=== PATIENT | female | born 1985 | race Caucasian/White ===

== ENCOUNTER 2024-01-05 15:15 | Outpatient (RCR) | payer OTHER, MEDICAID, SELFPAY ==
--- NOTE | 2023-12-02 13:08 | PT.OIE ---
Current Diagnoses Segmental and somatic dysfunction of pelvic region (12/01/23) Pelvic and perineal pain (12/01/23) Frequency of micturition (12/01/23) Nocturia (12/01/23) Visit Care Team Role Provider Type Aayush Trivedi MD Attending Provider Non-Staff Family Provider Primary Care Provider Referring Provider Specialty: Family Practice Address: [address] [place] [address], [id number] Email: Physical Therapy Initial Evaluation PT-OP-A Visit Information Start: 12/01/23 12:00 Freq: Status: Active Protocol: Document 12/01/23 13:01 [facility] (Rec: 12/01/23 13: [facility] [id number]) Out-Patient Physical Therapy Visit Information Visit Information Visit Type Initial Evaluation Visit Start Time 13:00 Visit Stop Time 13:45 Visit Number 1 Evaluation Information Evaluation Date 12/01/23 PT-OP-B Current Condition Start: 12/01/23 12:00 Freq: Status: Active Protocol: Document 12/01/23 13:00 [facility] (Rec: 12/01/23 13: [facility] [id number]) Current Condition History of Current Condition Onset Date September 2022 Current Complaints pelvic pain, urinary urgency/ frequency History of Current Condition in September of 2022 she was found to have a embedded IUD so she had surgery to remove it. She had the IUD in for 6 years. Afterwards she was experiencing a lot of pain and then started showing signs of infection. She had a infection and was in a lot of pain, she went to the ER and was told she didn't have a infection. THe pain didn't stop and she was able to see a doctor and was prescribed antibiotics and they did make the severe symptoms go away. SHe feels she is having urination issues. She describes frequent voiding and she goes every 30 min. She is limited both with her urgency and with pain HEr pain is mainly on the left side of her pelvis and abdominal wall. She had pre cervical cancer at 25 and was treated at located within [facility]. She had a leap procedure and she hasn't had any reoccurance of cancer since that time. pt notes her doctor recommended drinking more water. SHe is trying to drink 5-6 cups per water per day. She has a history of UTI's and has had a kidney infection . Pt notes she is back to regular bowel movements. SHe wakes up 4 times to go to the bathroom throuout the night. PT-OP-C Subjective Start: 12/01/23 12:00 Freq: Status: Active Protocol: Document 12/01/23 13:00 [facility] (Rec: 12/02/23 12:43 [facility] [id number]) Patient Questionnaires Pelvic Pain and Urgency/Frequency Patient Symptom Scale Pelvic Pain Score 25 OP-PT Pain Assessment Location left side lower abdomen and pelvis Pain Location Details pain is felt both internally in the pelvic floor as well as abdomen Intensity 6 Scale Used Numeric (0 - 10) PT-OP-I Pelvic Floor Start: 12/01/23 12:00 Freq: Status: Active Protocol: Document 12/01/23 13:00 [facility] (Rec: 12/01/23 16:55 [facility] [id number]) Pelvic Floor Assessment Urine Pelvic Floor Surgery IUD embedded and removed Urinary Symptoms Urge Sensation Other Urinary Symptoms feeling that she has a UTI Voiding Frequency 15-20 times per day Nocturia 4-5 times per night Pelvic Clock Pelvic Clock 12-3 Guarding,Tenderness,Tightness Pelvic Clock 3-6 Guarding,Hypertonic,Tenderness ,Tightness Pelvic Clock 6-9 Tenderness,Tightness Pelvic Clock Other left side of the levator ani very guarded and hypertonic, this is also the side where she felt pain following the IUD being removed Contraction Ability Voluntary Contraction Moderate Voluntary Relaxation Moderate Manual Muscle Testing Left 3 Manual Muscle Testing Right 3 Manual Muscle Testing Anterior 3 Manual Muscle Testing Posterior 3 Muscle Endurance (Seconds) 5 Comments Pelvic Floor Comments Jailyn has difficulty relaxing her pelvic floor following a contraction due to guarding and tension PT-OP-J Posture/Palpation/Skin Start: 12/01/23 12:00 Freq: Status: Active Protocol: Document 12/01/23 13:00 [facility] (Rec: 12/02/23 13:06 [facility] [id number]) Palpation Assessment Location levator ani left side Palpation Findings Soft Tissue Tightness,Spasm, Muscle Guarding,Tenderness, Trigger Point suprapubic fascia Palpation Findings Soft Tissue Tightness,Spasm, Muscle Guarding,Tenderness left side abdominal wall Palpation Findings Soft Tissue Tightness,Muscle Guarding,Tenderness PT-OP-Q Treatments Start: 12/01/23 12:00 Freq: Status: Active Protocol: Document 12/01/23 13:00 [facility] (Rec: 12/01/23 16:52 [facility] [id number]) Therapeutic Exercises Supine Exercises supine pelvic floor stretch in happy baby Reps/Minutes hold 1-2 min diaphragmatic breathing with pelvic floor lengthening Reps/Minutes x 10 reps PT-OP-T Assessment and Plan Start: 12/01/23 12:00 Freq: Status: Active Protocol: Document 12/01/23 13:00 [facility] (Rec: 12/02/23 12:43 [facility] [id number]) Physical Therapy Assessment Rehab Potential Rehabilitation Potential Excellent Evaluation Complexity Number of Personal Factors/Comorbidities 0 Number of Body Systems Impaired 1-2 Clinical Presentation at Evaluation Stable Impairments Impairments Activity Tolerance,Pain, Sensation,Soft Tissue Mobility Goals 3 Impairment Guarding and hypertonicty of the left lateral wall of the levator ani contributing to both pain as well as urgency and frequency Short Term Goal (STG) Jailyn is educated on hip stretches to help relax the pelvic floor and EMG biofeedback is used for pelvic floor down training STG Duration 4 weeks Senior Living Goal (LTG) Jailyn is able to relax the levator ani at rest with manual palpation as well as with EMG biofeedback LTG Duration 12 weeks 2 Impairment urinary urgency and frequency with Jailyn needing to void approx every 30 min up to 20 times per day and 4-5 times per night Short Term Goal (STG) Jailyn is educated on bladder retraining and urge deference technique to begin working on decreasing urgency and frequency STG Duration 4 weeks Senior Living Goal (LTG) Jailyn is able to decrease her voids to every 2 hours during the day and only 1-2 times per night LTG Duration 12 weeks 1 Impairment pelvic pain rated 6/10 worse on the left side Jet Mechanic Goal (LTG) Jailyn reports a overall reduction in pelvic pain and pain levels have decreased from 6/10 to 2-3/10 LTG Duration 12 weeks Assessment Summary Assessment Jailyn is a 38 year old female referred to PT with pelvic pain s/p removal of a embedded IUD in September of 2022. Jailyn reports she felt she had a infection after the removal of the IUD and it took seeing couple of doctors before she was prescribed a antibiotic. The antibiotic did help reduce the severe pain however she continues to have what she describes is left sided pelvic and abdominal pain since then . She also began experiencing urinary urgency and frequency s/p removal of the IUD. Jailyn reports voiding 15-20 times per day and waking 4-5 times at night to void. She will also feels symptoms of a UTI and has gone in for a urine sample but no infection was dectected. With pelvic floor evaluation today Jailyn presents with guarding and hypertonic left lateral wall of the levator ani. She is not able to relax her pelvic wall with verbal cueing. She is tight on the right but not as painful or guarded. There is tenderness to palpation on the left lower abdominal wall and restrictions in the suprapubic fascia over the bladder. Jaiyln was educated in diaphragmatic breathing with cues for pelvci floor relaxation and was given a stretch to help with pelvic floor relaxation. She is a good candidate for pelvic floor training working on relaxed awareness of the pelvic floor with EMG biofeedback and manual therapy techniques. Bladder retraining and urge deference technique will also be used to help decrease urinary urgency and frequency. Jailyn is a good candidate for PT Physical Therapy Plan Frequency and Duration Frequency of Treatment 1x/Week Duration of treatment (weeks) 12 Plan of Care Start Date 12/01/23 Plan of Care End Date 02/23/24 Therapeutic Interventions Therapeutic Interventions Home Exercise Program,Manual Therapy,Neuromuscular Re- education,Patient/Caregiver Education,Self-Care/Home Management,Soft Tissue Mobilization,Therapeutic Exercises Modalities Biofeedback Next Visit Focus/Plan Next Note Type Treatment Note Next Visit Plan Begin EMG biofeedback next visit for down training of the pelvic floor at rest, work on hip stretches to help relax the pelvic floor, diaphragmatic breathing exercises, MFR techniques over the abdominal wall
--- NOTE | 2023-12-10 15:55 | PT.OTN ---
Current Diagnoses Segmental and somatic dysfunction of pelvic region (12/10/23) Pelvic and perineal pain (12/10/23) Frequency of micturition (12/10/23) Nocturia (12/10/23) Physical Therapy Treatment Note PT-OP-A Visit Information Start: 12/01/23 12:00 Freq: Status: Active Protocol: Document 12/10/23 14:35 [facility] (Rec: 12/10/23 15:54 [facility] [id number]) Out-Patient Physical Therapy Visit Information Visit Information Visit Type Treatment Note Visit Start Time 14:35 Visit Stop Time 15:15 Visit Number 2 PT-OP-B Current Condition Start: 12/01/23 12:00 Freq: Status: Active Protocol: Document 12/01/23 13:00 [facility] (Rec: 12/01/23 13:24 [facility] [id number]) Current Condition History of Current Condition Onset Date September 2022 Current Complaints pelvic pain, urinary urgency/ frequency History of Current Condition in September of 2022 she was found to have a embedded IUD so she had surgery to remove it. She had the IUD in for 6 years. Afterwards she was experiencing a lot of pain and then started showing signs of infection. She had a infection and was in a lot of pain, she went to the ER and was told she didn't have a infection. THe pain didn't stop and she was able to see a doctor and was prescribed antibiotics and they did make the severe symptoms go away. SHe feels she is having urination issues. She describes frequent voiding and she goes every 30 min. She is limited both with her urgency and with pain HEr pain is mainly on the left side of her pelvis and abdominal wall. She had pre cervical cancer at 25 and was treated at [facility]. She had a leap procedure and she hasn't had any reoccurance of cancer since that time. pt notes her doctor recommended drinking more water. SHe is trying to drink 5-6 cups per water per day. She has a history of UTI's and has had a kidney infection . Pt notes she is back to regular bowel movements. SHe wakes up 4 times to go to the bathroom throuout the night. PT-OP-C Subjective Start: 12/01/23 12:00 Freq: Status: Active Protocol: Document 12/10/23 14:35 [facility] (Rec: 12/10/23 15:54 [facility] [id number]) OP-PT Subjective Patient Comments Patient Comments pt feels like it helps to relax her stomach and take her time when voiding, getting a squatty potty tomorrow, she also notes less frequency at night too. PT-OP-I Pelvic Floor Start: 12/01/23 12:00 Freq: Status: Active Protocol: Document 12/01/23 13:00 [facility] (Rec: 12/01/23 16:55 [facility] [id number]) Pelvic Floor Assessment Urine Pelvic Floor Surgery IUD embedded and removed Urinary Symptoms Urge Sensation Other Urinary Symptoms feeling that she has a UTI Voiding Frequency 15-20 times per day Nocturia 4-5 times per night Pelvic Clock Pelvic Clock 12-3 Guarding,Tenderness,Tightness Pelvic Clock 3-6 Guarding,Hypertonic,Tenderness ,Tightness Pelvic Clock 6-9 Tenderness,Tightness Pelvic Clock Other left side of the levator ani very guarded and hypertonic, this is also the side where she felt pain following the IUD being removed Contraction Ability Voluntary Contraction Moderate Voluntary Relaxation Moderate Manual Muscle Testing Left 3 Manual Muscle Testing Right 3 Manual Muscle Testing Anterior 3 Manual Muscle Testing Posterior 3 Muscle Endurance (Seconds) 5 Comments Pelvic Floor Comments Jailyn has difficulty relaxing her pelvic floor following a contraction due to guarding and tension PT-OP-J Posture/Palpation/Skin Start: 12/01/23 12:00 Freq: Status: Active Protocol: Document 12/01/23 13:00 [facility] (Rec: 12/02/23 13:06 [facility] [id number]) Palpation Assessment Location levator ani left side Palpation Findings Soft Tissue Tightness,Spasm, Muscle Guarding,Tenderness, Trigger Point suprapubic fascia Palpation Findings Soft Tissue Tightness,Spasm, Muscle Guarding,Tenderness left side abdominal wall Palpation Findings Soft Tissue Tightness,Muscle Guarding,Tenderness PT-OP-Q Treatments Start: 12/01/23 12:00 Freq: Status: Active Protocol: Document 12/10/23 14:35 [facility] (Rec: 12/10/23 15:54 [facility] [id number]) Therapeutic Exercises Supine Exercises ball squeeze with pelvic floor contraction Reps/Minutes 5 sec hold and 10 sec relaxation pelvic floor longholds Reps/Minutes 5 seconds on 10 seconds off pelvic floor resting tone Reps/Minutes 4.0 uv average diaphragmatic breathing with pelvic floor lengthening Reps/Minutes x 10 reps Prone Exercises cobra stretch Reps/Minutes 2 xms hold 30 sec + Manual Therapy Treatment Consent Patient gave verbal consent for manual Yes treatment Soft Tissue Mobilization fascial release of the suprapubic fascia and left side of the lower abdominal wall Mobilization Type Myofascial Release Body Position Hooklying Comments tightness in the suprapubic fascia and left side of the lower abdominal wall, Jailyn tolerated MFR well. EMG biofeedback was initiated for contract and relax of the levator ani PT-OP-T Assessment and Plan Start: 12/01/23 12:00 Freq: Status: Active Protocol: Document 12/10/23 14:35 [facility] (Rec: 12/10/23 15:54 [facility] [id number]) Physical Therapy Assessment Goals 3 Impairment Guarding and hypertonicty of the left lateral wall of the levator ani contributing to both pain as well as urgency and frequency Short Term Goal (STG) Jailyn is educated on hip stretches to help relax the pelvic floor and EMG biofeedback is used for pelvic floor down training STG Duration 4 weeks Fiscal Assistant Goal (LTG) Jailyn is able to relax the levator ani at rest with manual palpation as well as with EMG biofeedback LTG Duration 12 weeks 2 Impairment urinary urgency and frequency with Jailyn needing to void approx every 30 min up to 20 times per day and 4-5 times per night Short Term Goal (STG) Jailyn is educated on bladder retraining and urge deference technique to begin working on decreasing urgency and frequency STG Duration 4 weeks Skilled Nursing Goal (LTG) Jailyn is able to decrease her voids to every 2 hours during the day and only 1-2 times per night LTG Duration 12 weeks 1 Impairment pelvic pain rated 6/10 worse on the left side Fiscal Assistant Goal (LTG) Jailyn reports a overall reduction in pelvic pain and pain levels have decreased from 6/10 to 2-3/10 LTG Duration 12 weeks Assessment Summary Assessment Treatment today included MFR techniques for the suprapubic fascia an left side of the abdominal wall. I also gave Jailyn a xs dilator to begin working on self release of the left side of the levator ani Physical Therapy Plan Frequency and Duration Frequency of Treatment 1x/Week Duration of treatment (weeks) 12 Plan of Care Start Date 12/01/23 Plan of Care End Date 02/23/24 Therapeutic Interventions Therapeutic Interventions Home Exercise Program,Manual Therapy,Neuromuscular Re- education,Patient/Caregiver Education,Self-Care/Home Management,Soft Tissue Mobilization,Therapeutic Exercises Modalities Biofeedback Next Visit Focus/Plan Next Note Type Treatment Note Next Visit Plan assess how pt did after MFR techniques and contract relax, check in with how Jailyn did using the dilator for self release. Show her a pelvic wand and where to purchase
--- NOTE | 2023-12-15 16:26 | PT.OTN ---
Current Diagnoses Segmental and somatic dysfunction of pelvic region (12/15/23) Pelvic and perineal pain (12/15/23) Frequency of micturition (12/15/23) Nocturia (12/15/23) Physical Therapy Treatment Note PT-OP-A Visit Information Start: 12/01/23 12:00 Freq: Status: Active Protocol: Document 12/15/23 16:22 [facility] (Rec: 12/15/23 16:25 [facility] [id number]) Out-Patient Physical Therapy Visit Information Visit Information Visit Type Treatment Note Visit Start Time 15:15 Visit Stop Time 16:00 Visit Number 3 Evaluation Information Evaluation Date 12/01/23 PT-OP-B Current Condition Start: 12/01/23 12:00 Freq: Status: Active Protocol: Document 12/01/23 13:00 [facility] (Rec: 12/01/23 13:24 [facility] [id number]) Current Condition History of Current Condition Onset Date September 2022 Current Complaints pelvic pain, urinary urgency/ frequency History of Current Condition in September of 2022 she was found to have a embedded IUD so she had surgery to remove it. She had the IUD in for 6 years. Afterwards she was experiencing a lot of pain and then started showing signs of infection. She had a infection and was in a lot of pain, she went to the ER and was told she didn't have a infection. THe pain didn't stop and she was able to see a doctor and was prescribed antibiotics and they did make the severe symptoms go away. SHe feels she is having urination issues. She describes frequent voiding and she goes every 30 min. She is limited both with her urgency and with pain HEr pain is mainly on the left side of her pelvis and abdominal wall. She had pre cervical cancer at 25 and was treated at [facility]. She had a leap procedure and she hasn't had any reoccurance of cancer since that time. pt notes her doctor recommended drinking more water. SHe is trying to drink 5-6 cups per water per day. She has a history of UTI's and has had a kidney infection . Pt notes she is back to regular bowel movements. SHe wakes up 4 times to go to the bathroom throuout the night. PT-OP-C Subjective Start: 12/01/23 12:00 Freq: Status: Active Protocol: Document 12/15/23 15:23 [facility] (Rec: 12/15/23 16:22 [facility] [id number]) OP-PT Subjective Patient Comments Patient Comments with the dilator she can feel more sensitivity on the left left she is noticing that her urgency is not as frequent and she was able to go see a movie she is also sleeping better at night and waking 1-2 times per night PT-OP-I Pelvic Floor Start: 12/01/23 12:00 Freq: Status: Active Protocol: Document 12/01/23 13:00 [facility] (Rec: 12/01/23 16:55 [facility] [id number]) Pelvic Floor Assessment Urine Pelvic Floor Surgery IUD embedded and removed Urinary Symptoms Urge Sensation Other Urinary Symptoms feeling that she has a UTI Voiding Frequency 15-20 times per day Nocturia 4-5 times per night Pelvic Clock Pelvic Clock 12-3 Guarding,Tenderness,Tightness Pelvic Clock 3-6 Guarding,Hypertonic,Tenderness ,Tightness Pelvic Clock 6-9 Tenderness,Tightness Pelvic Clock Other left side of the levator ani very guarded and hypertonic, this is also the side where she felt pain following the IUD being removed Contraction Ability Voluntary Contraction Moderate Voluntary Relaxation Moderate Manual Muscle Testing Left 3 Manual Muscle Testing Right 3 Manual Muscle Testing Anterior 3 Manual Muscle Testing Posterior 3 Muscle Endurance (Seconds) 5 Comments Pelvic Floor Comments Jailyn has difficulty relaxing her pelvic floor following a contraction due to guarding and tension PT-OP-J Posture/Palpation/Skin Start: 12/01/23 12:00 Freq: Status: Active Protocol: Document 12/01/23 13:00 [facility] (Rec: 12/02/23 13:06 [facility] [id number]) Palpation Assessment Location levator ani left side Palpation Findings Soft Tissue Tightness,Spasm, Muscle Guarding,Tenderness, Trigger Point suprapubic fascia Palpation Findings Soft Tissue Tightness,Spasm, Muscle Guarding,Tenderness left side abdominal wall Palpation Findings Soft Tissue Tightness,Muscle Guarding,Tenderness PT-OP-Q Treatments Start: 12/01/23 12:00 Freq: Status: Active Protocol: Document 12/15/23 15:23 [facility] (Rec: 12/15/23 16:22 [facility] [id number]) Therapeutic Exercises Supine Exercises piriformis stretch Reps/Minutes hold 1-2 min hamstring and adductor stretch Reps/Minutes hold 1-2 min pelvic floor longholds Reps/Minutes 10 sec on 10 sec off Comments 6 av and max 10.8 pelvic floor resting tone Reps/Minutes 2.5 uv Comments less uncomfortable putting it in Manual Therapy Treatment Soft Tissue Mobilization left adductor release Comments worked on releasing the left adductors today, Jailyn finds herself guarded with legs crossed often fascial release of the suprapubic fascia and left side of the lower abdominal wall Mobilization Type Myofascial Release Body Position Hooklying Comments tightness in the suprapubic fascia and left side of the lower abdominal wall, Jailyn tolerated MFR well. EMG biofeedback was initiated for contract and relax of the levator ani PT-OP-T Assessment and Plan Start: 12/01/23 12:00 Freq: Status: Active Protocol: Document 12/15/23 15:23 [facility] (Rec: 12/15/23 16:22 [facility] [id number]) Physical Therapy Assessment Goals 3 Impairment Guarding and hypertonicty of the left lateral wall of the levator ani contributing to both pain as well as urgency and frequency Short Term Goal (STG) Jailyn is educated on hip stretches to help relax the pelvic floor and EMG biofeedback is used for pelvic floor down training STG Duration 4 weeks Talent Management Specialist Goal (LTG) Jailyn is able to relax the levator ani at rest with manual palpation as well as with EMG biofeedback LTG Duration 12 weeks 2 Impairment urinary urgency and frequency with Jailyn needing to void approx every 30 min up to 20 times per day and 4-5 times per night Short Term Goal (STG) Jailyn is educated on bladder retraining and urge deference technique to begin working on decreasing urgency and frequency STG Duration 4 weeks Talent Management Specialist Goal (LTG) Jailyn is able to decrease her voids to every 2 hours during the day and only 1-2 times per night LTG Duration 12 weeks 1 Impairment pelvic pain rated 6/10 worse on the left side [facility] Goal (LTG) Jailyn reports a overall reduction in pelvic pain and pain levels have decreased from 6/10 to 2-3/10 LTG Duration 12 weeks Assessment Summary Assessment Improved resting tone on EMG biofeedback today and Jailyn is starting to notice decreased urgency. she was able to go to the movies for the first time in a long time . We did review use of the dilator and Jailyn was also shown a pelvic wand today for option for home Physical Therapy Plan Next Visit Focus/Plan Next Note Type Treatment Note Next Visit Plan continue with stretches for the pelvic floor breathing techniques, fascial release and contract relax of the pelvic floor assess if Jailyn needs any further visits in PT
--- NOTE | 2023-12-29 16:18 | PT.OTN ---
Current Diagnoses Segmental and somatic dysfunction of pelvic region (12/29/23) Pelvic and perineal pain (12/29/23) Frequency of micturition (12/29/23) Nocturia (12/29/23) Physical Therapy Treatment Note PT-OP-A Visit Information Start: 12/01/23 12:00 Freq: Status: Active Protocol: Document 12/29/23 15:17 [facility] (Rec: 12/29/23 16:18 [facility] [id number]) Out-Patient Physical Therapy Visit Information Visit Information Visit Type Treatment Note Visit Start Time 15:15 Visit Stop Time 16:00 Visit Number 4 PT-OP-B Current Condition Start: 12/01/23 12:00 Freq: Status: Active Protocol: Document 12/01/23 13:00 [facility] (Rec: 12/01/23 13:24 [facility] [id number]) Current Condition History of Current Condition Onset Date September 2022 Current Complaints pelvic pain, urinary urgency/ frequency History of Current Condition in September of 2022 she was found to have a embedded IUD so she had surgery to remove it. She had the IUD in for 6 years. Afterwards she was experiencing a lot of pain and then started showing signs of infection. She had a infection and was in a lot of pain, she went to the ER and was told she didn't have a infection. THe pain didn't stop and she was able to see a doctor and was prescribed antibiotics and they did make the severe symptoms go away. SHe feels she is having urination issues. She describes frequent voiding and she goes every 30 min. She is limited both with her urgency and with pain HEr pain is mainly on the left side of her pelvis and abdominal wall. She had pre cervical cancer at 25 and was treated at [facility]. She had a leap procedure and she hasn't had any reoccurance of cancer since that time. pt notes her doctor recommended drinking more water. SHe is trying to drink 5-6 cups per water per day. She has a history of UTI's and has had a kidney infection . Pt notes she is back to regular bowel movements. SHe wakes up 4 times to go to the bathroom throuout the night. PT-OP-C Subjective Start: 12/01/23 12:00 Freq: Status: Active Protocol: Document 12/29/23 15:17 [facility] (Rec: 12/29/23 16:18 [facility] [id number]) OP-PT Subjective Patient Comments Patient Comments pt got the squatty potty and the pelvic wand, she is able to hold for longer, she is not feeling as anxious as far as finding a bathroom. Nightime is a lot better, she usually gets up at 5 now and only 1 xm per night PT-OP-I Pelvic Floor Start: 12/01/23 12:00 Freq: Status: Active Protocol: Document 12/01/23 13:00 [facility] (Rec: 12/01/23 16:55 [facility] [id number]) Pelvic Floor Assessment Urine Pelvic Floor Surgery IUD embedded and removed Urinary Symptoms Urge Sensation Other Urinary Symptoms feeling that she has a UTI Voiding Frequency 15-20 times per day Nocturia 4-5 times per night Pelvic Clock Pelvic Clock 12-3 Guarding,Tenderness,Tightness Pelvic Clock 3-6 Guarding,Hypertonic,Tenderness ,Tightness Pelvic Clock 6-9 Tenderness,Tightness Pelvic Clock Other left side of the levator ani very guarded and hypertonic, this is also the side where she felt pain following the IUD being removed Contraction Ability Voluntary Contraction Moderate Voluntary Relaxation Moderate Manual Muscle Testing Left 3 Manual Muscle Testing Right 3 Manual Muscle Testing Anterior 3 Manual Muscle Testing Posterior 3 Muscle Endurance (Seconds) 5 Comments Pelvic Floor Comments Jailyn has difficulty relaxing her pelvic floor following a contraction due to guarding and tension PT-OP-J Posture/Palpation/Skin Start: 12/01/23 12:00 Freq: Status: Active Protocol: Document 12/01/23 13:00 [facility] (Rec: 12/02/23 13:06 [facility] [id number]) Palpation Assessment Location levator ani left side Palpation Findings Soft Tissue Tightness,Spasm, Muscle Guarding,Tenderness, Trigger Point suprapubic fascia Palpation Findings Soft Tissue Tightness,Spasm, Muscle Guarding,Tenderness left side abdominal wall Palpation Findings Soft Tissue Tightness,Muscle Guarding,Tenderness PT-OP-Q Treatments Start: 12/01/23 12:00 Freq: Status: Active Protocol: Document 12/29/23 15:17 [facility] (Rec: 12/29/23 16:18 [facility] [id number]) Manual Therapy Treatment Soft Tissue Mobilization fascial release of the suprapubic fascia and left side of the lower abdominal wall Mobilization Type Myofascial Release Body Position Hooklying Comments tightness in the suprapubic fascia and left side of the lower abdominal wall, Jailyn tolerated MFR well. EMG biofeedback was initiated for contract and relax of the levator ani Manual Techniques manual hamstring, adductor, and piriformis stretches Comments right sided hip tightness > Left side PT-OP-T Assessment and Plan Start: 12/01/23 12:00 Freq: Status: Active Protocol: Document 12/29/23 15:17 [facility] (Rec: 12/29/23 16:18 [facility] [id number]) Physical Therapy Assessment Assessment Summary Assessment Jaliyn is making good progress and symptoms are decreasing overall. EMG biofeedback was not done today as she was on her period but we will return to it next visit. If she is still doing well this next visit will be her last visit Physical Therapy Plan Frequency and Duration Frequency of Treatment 1x/Week Duration of treatment (weeks) 12 Plan of Care Start Date 12/01/23 Plan of Care End Date 02/23/24 Next Visit Focus/Plan Next Note Type Treatment Note Next Visit Plan continue with stretches for the pelvic floor breathing techniques, fascial release and contract relax of the pelvic floor
--- NOTE | 2024-01-05 16:28 | PT.OTN ---
Current Diagnoses Segmental and somatic dysfunction of pelvic region (01/05/24) Pelvic and perineal pain (01/05/24) Frequency of micturition (01/05/24) Nocturia (01/05/24) Physical Therapy Treatment Note PT-OP-A Visit Information Start: 12/01/23 12:00 Freq: Status: Active Protocol: Document 01/05/24 16:18 [facility] (Rec: 01/05/24 16:18 [facility] [id number]) Out-Patient Physical Therapy Visit Information Visit Information Visit Type Treatment Note Visit Start Time 15:15 Visit Stop Time 16:00 Visit Number 5 PT-OP-B Current Condition Start: 12/01/23 12:00 Freq: Status: Active Protocol: Document 12/01/23 13:00 [facility] (Rec: 12/01/23 13: [facility] [id number]) Current Condition History of Current Condition Onset Date September 2022 Current Complaints pelvic pain, urinary urgency/ frequency History of Current Condition in September of 2022 she was found to have a embedded IUD so she had surgery to remove it. She had the IUD in for 6 years. Afterwards she was experiencing a lot of pain and then started showing signs of infection. She had a infection and was in a lot of pain, she went to the ER and was told she didn't have a infection. THe pain didn't stop and she was able to see a doctor and was prescribed antibiotics and they did make the severe symptoms go away. SHe feels she is having urination issues. She describes frequent voiding and she goes every 30 min. She is limited both with her urgency and with pain HEr pain is mainly on the left side of her pelvis and abdominal wall. She had pre cervical cancer at 25 and was treated at [facility]. She had a leap procedure and she hasn't had any reoccurance of cancer since that time. pt notes her doctor recommended drinking more water. SHe is trying to drink 5-6 cups per water per day. She has a history of UTI's and has had a kidney infection . Pt notes she is back to regular bowel movements. SHe wakes up 4 times to go to the bathroom throuout the night. PT-OP-C Subjective Start: 12/01/23 12:00 Freq: Status: Active Protocol: Document 01/05/24 15:21 [facility] (Rec: 01/05/24 16:15 [facility] [id number]) OP-PT Subjective Patient Comments Patient Comments pt feels like she is doing better, the pelvic wand is helping, she will start foam roller PT-OP-I Pelvic Floor Start: 12/01/23 12:00 Freq: Status: Active Protocol: Document 12/01/23 13:00 [facility] (Rec: 12/01/23 16:55 [facility] [id number]) Pelvic Floor Assessment Urine Pelvic Floor Surgery IUD embedded and removed Urinary Symptoms Urge Sensation Other Urinary Symptoms feeling that she has a UTI Voiding Frequency 15-20 times per day Nocturia 4-5 times per night Pelvic Clock Pelvic Clock 12-3 Guarding,Tenderness,Tightness Pelvic Clock 3-6 Guarding,Hypertonic,Tenderness ,Tightness Pelvic Clock 6-9 Tenderness,Tightness Pelvic Clock Other left side of the levator ani very guarded and hypertonic, this is also the side where she felt pain following the IUD being removed Contraction Ability Voluntary Contraction Moderate Voluntary Relaxation Moderate Manual Muscle Testing Left 3 Manual Muscle Testing Right 3 Manual Muscle Testing Anterior 3 Manual Muscle Testing Posterior 3 Muscle Endurance (Seconds) 5 Comments Pelvic Floor Comments Jailyn has difficulty relaxing her pelvic floor following a contraction due to guarding and tension PT-OP-J Posture/Palpation/Skin Start: 12/01/23 12:00 Freq: Status: Active Protocol: Document 12/01/23 13:00 [facility] (Rec: 12/02/23 13:06 [facility] [id number]) Palpation Assessment Location levator ani left side Palpation Findings Soft Tissue Tightness,Spasm, Muscle Guarding,Tenderness, Trigger Point suprapubic fascia Palpation Findings Soft Tissue Tightness,Spasm, Muscle Guarding,Tenderness left side abdominal wall Palpation Findings Soft Tissue Tightness,Muscle Guarding,Tenderness PT-OP-Q Treatments Start: 12/01/23 12:00 Freq: Status: Active Protocol: Document 01/05/24 15:21 [facility] (Rec: 01/05/24 16:15 [facility] [id number]) Therapeutic Exercises Supine Exercises pelvic floor longholds Reps/Minutes 10 sec on 10 sec off Comments 6.4 and 13.9 uv diaphragmatic breathing with pelvic floor lengthening Reps/Minutes x 10 reps Manual Therapy Treatment Soft Tissue Mobilization fascial release of the suprapubic fascia and left side of the lower abdominal wall Mobilization Type Myofascial Release Body Position Hooklying Comments tightness in the suprapubic fascia and left side of the lower abdominal wall, Jailyn tolerated MFR well. PT-OP-T Assessment and Plan Start: 12/01/23 12:00 Freq: Status: Active Protocol: Document 01/05/24 15:21 [facility] (Rec: 01/05/24 16:15 [facility] [id number]) Physical Therapy Assessment Goals 3 Impairment Guarding and hypertonicty of the left lateral wall of the levator ani contributing to both pain as well as urgency and frequency Short Term Goal (STG) Jailyn is educated on hip stretches to help relax the pelvic floor and EMG biofeedback is used for pelvic floor down training goal met STG Duration 4 weeks Pan Helper Goal (LTG) Jailyn is able to relax the levator ani at rest with manual palpation as well as with EMG biofeedback as of 01/05/24 Jailyn is making good progress with decreased resting tone of the pelvic floor to 2.5 uv. LTG Duration 12 weeks 2 Impairment urinary urgency and frequency with Jailyn needing to void approx every 30 min up to 20 times per day and 4-5 times per night Short Term Goal (STG) Jailyn is educated on bladder retraining and urge deference technique to begin working on decreasing urgency and frequency goal met STG Duration 4 weeks Pan Helper Goal (LTG) Jailyn is able to decrease her voids to every 2 hours during the day and only 1-2 times per night goal met LTG Duration 12 weeks 1 Impairment pelvic pain rated 6/10 worse on the left side Assisted Goal (LTG) Jailyn reports a overall reduction in pelvic pain and pain levels have decreased from 6/10 to 2-3/10 good progress, pain is worse when menstruating and she describes it as a shooting pain is 6 during her period and when not on her period a 3 -4/10 LTG Duration 12 weeks Assessment Summary Assessment Jailyn has made great progress and her symptoms are decreased. Her urinary urgency has been decreased and she is able to sleep through the night waking only 1 time early AM to void. She has been able to increase her voids in the day time to 2 hour intervals. Pain is decreasing overall all to 2-3/ 10. She does still experience the left sided pain rated 6/ 10 when menstruating. At this point Jailyn is independent with her home program and will be discharged to a [facility] at this time. Physical Therapy Plan Discharge Physical Therapy Discharge Reasons Goals Met Discharge Comments pt has made great progress towards her goals and will continue to work on her home program.
== END 2024-01-12 12:42 | disposition home or self-care (01) ==
LOC: PHYS 15:15
PROVIDERS: Family Provider Family Medicine; PCP Family Medicine; Referring Provider Family Medicine; Visit Provider Family Medicine
DX: M99.05 Segmental and somatic dysfunction of pelvic region (principal); R10.2 Pelvic and perineal pain; R35.1 Nocturia; R35.0 Frequency of micturition
CPT/HCPCS: 97110; 97140; 97161